=== PATIENT | male | born 1975 | race Two or more races ===

== ENCOUNTER 2020-07-24 13:40 | Emergency (ER) | payer OTHER ==
[~2020-07-24] VITALS: Ht 182.9 cm; Wt 88.6 kg
[2020-07-24 13:48] VITALS: BP 151/87
[2020-07-24] MEDS ORDERED: HYDR-3965 PO (15:12)
== END 2020-07-24 15:55 | disposition home or self-care (01) ==
LOC: ER 13:41
DX: S82.191A Other fracture of upper end of right tibia, initial encounter for closed fracture (principal); Z60.2 Problems related to living alone; Z59.0 Homelessness; Z79.899 Other long term (current) drug therapy; W19.XXXA Unspecified fall, initial encounter; Y93.89 Activity, other specified; Y92.89 Other specified places as the place of occurrence of the external cause; Y99.8 Other external cause status
CPT/HCPCS: 29505; 29515; 73564; 73610; 99284